=== PATIENT | female | born 2000 | race Caucasian/White ===

== ENCOUNTER 2019-06-07 20:18 | Emergency (ER) | payer OTHER ==
[~2019-06-07] VITALS: Ht 157.5 cm; Wt 68.0 kg
[2019-06-07 20:34] VITALS: Ht 157.5 cm; Wt 68.0 kg
[2019-06-07 23:05] VITALS: BP 118/73
== END 2019-06-07 23:05 | disposition home or self-care (01) ==
LOC: ED 20:18
DX: S09.8XXA Other specified injuries of head, initial encounter (principal); X58.XXXA Exposure to other specified factors, initial encounter; Y93.89 Activity, other specified; Y92.89 Other specified places as the place of occurrence of the external cause; Y99.8 Other external cause status